=== PATIENT | female | born 1955 | race Caucasian/White ===

== ENCOUNTER 2024-11-10 17:56 | Outpatient (CLI) | payer MEDICARE, SELFPAY | END 2024-11-10 17:57 | disposition home or self-care (01) | LOC: NFLDREF 11-15 12:09 | PROVIDERS: Visit Provider Physician Assistant Surgical | DX: R35.0 Frequency of micturition (principal); N39.0 Urinary tract infection, site not specified; R31.9 Hematuria, unspecified | CPT/HCPCS: 87086 ==